=== PATIENT | male | born 1965 | race Hispanic/Latino ===

== ENCOUNTER 2022-04-24 19:03 | Inpatient (IN) | payer SELFPAY ==
[~2022-04-24] VITALS: Ht 167.6 cm; Wt 95.0 kg
[2022-04-24 20:05] VITALS: BP 132/75
[2022-04-24 20:16] VITALS: BP 141/66
[2022-04-24 20:31] VITALS: BP 142/88
[2022-04-24 20:43] LABS: BASO% 0.3 % (0-3); EOS% 0.1 % (0-8); HEMATOCRIT 46.4 % (39.0-50.0); HEMOGLOBIN 15.6 g/dl (14.0-18.0); IMMATURE GRANULOCYTES 0.2 % (0.0-5.0); LYMPH% 5.2 % (15-41); MEAN CELL VOLUME 91.2 fL CALC (80.0-100.0); MEAN CORPUSCULAR HGB 30.6 pG CALC (26.0-32.0); MEAN CORPUSCULAR HGB CONC 33.6 g/dL CAL (32.0-36.0); MONO% 3.7 % (2-13); NEUT# 12.37 thou/uL (1.82-7.42); NEUT% 90.5 % (42-76); RED BLOOD COUNT 5.09 mill/uL (4.70-6.10); RED CELL DISTRI WIDTH 14.2 % (11.5-15.5)
[2022-04-24 20:45] VITALS: BP 153/77
[2022-04-24 21:02] VITALS: BP 123/79
[2022-04-24 21:04] LABS: URINE BILIRUBIN - DIPSTICK SMALL (NEGATIVE); URINE BLOOD DIPSTICK NEGATIVE (NEGATIVE); URINE COLOR YELLOW; URINE GLUCOSE - DIPSTICK NEGATIVE (NEGATIVE); URINE KETONE NEGATIVE (NEGATIVE); URINE LEUK ESTERASE NEGATIVE (NEGATIVE); URINE NITRITE - DIPSTICK NEGATIVE (Negative); URINE PROTEIN - DIPSTICK NEGATIVE (NEG-TRACE)
[2022-04-24 21:09] LABS: ALBUMIN 4.8 g/dL (3.2-5.0); ALKALINE PHOSPHATASE 102 u/l (38-126); ANION GAP 12 (6-22 (CALC)); BILIRUBIN, TOTAL 1.5 mg/dL (0.2-1.3); BUN 12 mg/dL (9-20); BUN/CREATININE RATIO 18 (12-20 (CALC)); CARBON DIOXIDE 29 mmol/l (22-30); CHLORIDE 100 mmol/l (95-108); CREATININE 0.7 mg/dL (0.7-1.3); GFR FOR AFR.AMER. > 60 ML/MIN (>=60 (CALC)); GFR OTHER RACES > 60 ML/MIN (>=60 (CALC)); LIPASE 239 u/l (23-300); POTASSIUM 3.9 mmol/l (3.5-5.1); SGOT/AST 136 u/l (17-59); SODIUM 138 mmol/l (137-146); TOTAL PROTEIN 8.9 g/dL (6.3-8.2)
[2022-04-24 21:16] VITALS: BP 132/75
--- NOTE | 2022-04-24 23:51 | NUR ---
CALLED REPORT TO [facility] UPSTA[facility]. PT IN STABLE CONDITION. TRANSFERRING PT TO 274 VIA WHEELCHAIR.
--- NOTE | 2022-04-25 | NUR ---
PT ARRIVED TO [facility]2 VIA WHEELCHAIR ACCOMPANIED BY ER NURSE. PT AMBULATED TO STANDING SCALE FOR WEIGHT, STEADY GAIT. ORIENTED PT TO ROOM AND CALL LIGHT. DISCUSSED POC. PT ALERT AND ORIENTED X3, VINCENTIAN SPEAKING. INSTRUCTED PT TO PLACE BELONGINGS IN BELONGINS BAG AND CHANGE INTO A GOWN, UNDERGARMENTS OFF WELL. PT VERBALIZED UNDERSTANDING. VITALS OBTAINED. INCENTIVE SPIROMETER BROUGHT TO BEDSIDE, PROVIDED TEACHING ON ITS USE. PT VERBALIZED UNDERSTANDING, UNABLE TO ATTEMPT AT THIS TIME DUE TO PAIN. WILL MEDICATE ONCE MEDICATIONS PROFILED. ADMISSION ASSESSMENT COMPLETED, CALL LIGHT IN REACH,CONTINUE TO MONITOR.
[2022-04-25 00:05] VITALS: BP 137/77
[2022-04-25 06:09] VITALS: BP 132/55
--- NOTE | 2022-04-25 06:09 | NUR ---
PT RESTING IN BED, MEDICATED PER MAR, NO SIGNS OF DISTRESS NOTED, RESP EVEN AND UNLABORED. PT DENIES ANY NEEDS AT THIS TIME. CALL LIGHT IN REACH,CONTINUE TO MONITOR.
--- NOTE | 2022-04-25 10:33 | NUR ---
PATIENT RESTING MD INORMED PATIENT IN PERSON OF PROCEDURE THAT WILL HAPPEN TOMORROW FOR NOW HE CAN HAVE FULL LIQUID DIET UNTIL MIDNIGHT.
[2022-04-25 15:53] VITALS: BP 145/68
--- NOTE | 2022-04-25 17:21 | NUR ---
NO CHANGES. CONSENT REVIEWED WITH PATIENT AND SIGNED.
[2022-04-25 19:23] VITALS: BP 121/53
--- NOTE | 2022-04-25 20:15 | NUR ---
RECEIVED REPORT FROM DAY SHIFT NURSE. FAMILY AT BEDSIDE. PT ON BED HIGH FOWLERS; A&O X3. EVEN AND UNLABORED RESPIRATIONS; CLEAR LUNG SOUNDS UPON AUSCULTATION. IV SITE HEALTHY AND PATENT. PT DENIES PAIN AT THIS TIME. SAFETY PRECAUTIONS IN PLACE WITH CALL LIGHT IN REACH.
--- NOTE | 2022-04-25 20:34 | NUR ---
nurse park notified @1939 abt pts temp of 101.6.
--- NOTE | 2022-04-25 23:05 | NUR ---
PT HAD A TEMP OF 101.6; DR ROUSE NOTIFIED OF SAME; TYLENOL ORDER OBTAINED. RECHECKED TEMP IT WENT DOWN TO 100.[address] WITH CALL LIGHT IN REACH.
[2022-04-26] VITALS (12 sets, daily range): BP systolic 98–146; BP diastolic 52–74
--- NOTE | 2022-04-26 00:20 | NUR ---
PT C/O ABDOMINAL PAIN, LEVEL 6/10; ADMINISTERED PAIN MED PER EMAR. HANGING SCHEDULED ABX, IV HEALTHY AND PATENT. SAFETY PRECAUTIONS IN PLACE WITH CALL LIGHT IN REACH.
--- NOTE | 2022-04-26 04:45 | NUR ---
PT RESTING ON BED. VS COMPLETED, PT UP TO OBTAIN WEIGH. PT REMAINS NPO. IV SITE HEALTHY AND PATENT, INFUSING FLUIDS PER ORDER. SAFETY PRECAUTIONS IN PLACE WITH CALL LIGHT IN REACH.
[2022-04-26 05:26] LABS: BASO% 0.4 % (0-3); EOS% 4.6 % (0-8); IMMATURE GRANULOCYTES 0.2 % (0.0-5.0); LYMPH% 16.9 % (15-41); MEAN CELL VOLUME 92.5 fL CALC (80.0-100.0); MEAN CORPUSCULAR HGB 31.3 pG CALC (26.0-32.0); MEAN CORPUSCULAR HGB CONC 33.8 g/dL CAL (32.0-36.0); MONO% 9.1 % (2-13); NEUT# 5.75 thou/uL (1.82-7.42); NEUT% 68.8 % (42-76); RED BLOOD COUNT 4.28 mill/uL (4.70-6.10); RED CELL DISTRI WIDTH 14.9 % (11.5-15.5)
[2022-04-26 05:34] LABS: HEMATOCRIT 39.6 % (39.0-50.0); HEMOGLOBIN 13.4 g/dl (14.0-18.0)
[2022-04-26 05:44] LABS: ALKALINE PHOSPHATASE 120 u/l (38-126); ANION GAP 6 (6-22 (CALC)); BUN 8 mg/dL (9-20); BUN/CREATININE RATIO 11 (12-20 (CALC)); CARBON DIOXIDE 25 mmol/l (22-30); CHLORIDE 109 mmol/l (95-108); CREATININE 0.7 mg/dL (0.7-1.3); GFR FOR AFR.AMER. > 60 ML/MIN (>=60 (CALC)); GFR OTHER RACES > 60 ML/MIN (>=60 (CALC)); POTASSIUM 3.7 mmol/l (3.5-5.1); SGOT/AST 95 u/l (17-59); SODIUM 137 mmol/l (137-146)
[2022-04-26 05:50] LABS: ALBUMIN 3.2 g/dL (3.2-5.0); BILIRUBIN, TOTAL 4.1 mg/dL (0.2-1.3); TOTAL PROTEIN 6.3 g/dL (6.3-8.2)
--- NOTE | 2022-04-26 10:50 | NUR ---
PATIENT LEFT FOR PROCEDURE NPO AFTER MIDNIGHT. PATIENT AGREEABLE TO PRODEDURE.
[2022-04-26 17:58] LABS: HEMATOCRIT 41.6 % (39.0-50.0); HEMOGLOBIN 13.8 g/dl (14.0-18.0)
--- NOTE | 2022-04-26 18:19 | NUR ---
PATIENT HAD LAPCHOLE WITH ABNER DRAIN PLACEMENT. PATIENT REPORTS PAIN 8/10 PRN MED GIVEN PAIN DOWN TO 3/10. IV FLUIDS RUNNING WITH ABX. PATIENT ENCOURAGE TO EAT AND AMBULATE. SURGERY SITES REMAIN IN GOOD CONDITION. ABNER DRAIN OUTPUT DURING DAY SHIFT 80ML BLOODY RED. WILL CONTINUE TO MONITOR.
--- NOTE | 2022-04-26 19:16 | NUR ---
pt had a temp of 100.2 @1906. Nurse park notified @1909.
--- NOTE | 2022-04-26 19:30 | NUR ---
RECEIVED REPORT FROM HOLLY JONES. PT SITTING ON BED LOW FOWLERS: A&O X3. EVEN AND UNLABORED RESPIRATIONS. IV SITE HEALTHY AND PATENT. ACTIVE BOWEL SOUNDS X4 QUADRANTS. ABDOMINAL GLUED INCISIONS NOTED 3X, AND ABNER DRAIN. EMPTIED ABNER DRAIN CONTENTS; 50 MLS OF BLOODY DRAINAGE. SCD'S APPLIED. PT DENIES PAIN AT THIS TIME. SAFETY PRECAUTIONS IN PLACE WITH CALL LIGHT IN REACH.
--- NOTE | 2022-04-27 00:19 | NUR ---
PT RESTING ON BED; VS COMPLETED, TEMP 100.9; TYLENOL ADMINISTERED. PT C/O ABDOMINAL PAIN, LEVEL 9/10; ADMINISTERED PAIN MED PER EMAR. EMPTIED ABNER DRAIN CONTENTS, 30CC OB BLOODY DRAINAGE. SAFETY PRECAUTIONS IN PLACE WITH CALL LIGHT IN REACH.
[2022-04-27 01:40] VITALS: BP 100/60
--- NOTE | 2022-04-27 04:32 | NUR ---
PT SITTING ON BED, LOW FOWLERS POSITION. CLEAN GOWN PROVIDED. PT ASSISSTED WITH THE USE OF URINAL; 350 MLS OF DARK TYLER URINE. EMPTIED ABNER CONTENTS; 10 MLS OF BLOODY DRAINAGE. SCD'S IN PLACE. NO DISTRESS NOTED. PT DENIES PAIN AT THIS TIME. SAFETY PRECAUTIONS IN PLACE WITH CALL LIGHT IN REACH.
[2022-04-27 04:46] VITALS: BP 113/69
[2022-04-27 06:08] LABS: BASO% 0.5 % (0-3); EOS% 1.5 % (0-8); HEMATOCRIT 36.4 % (39.0-50.0); HEMOGLOBIN 11.9 g/dl (14.0-18.0); IMMATURE GRANULOCYTES 0.2 % (0.0-5.0); LYMPH% 18.7 % (15-41); MEAN CELL VOLUME 94.1 fL CALC (80.0-100.0); MEAN CORPUSCULAR HGB 30.7 pG CALC (26.0-32.0); MEAN CORPUSCULAR HGB CONC 32.7 g/dL CAL (32.0-36.0); NEUT# 5.85 thou/uL (1.82-7.42); NEUT% 71.1 % (42-76); RED BLOOD COUNT 3.87 mill/uL (4.70-6.10); RED CELL DISTRI WIDTH 15.1 % (11.5-15.5)
[2022-04-27 06:21] LABS: ALBUMIN 3.2 g/dL (3.2-5.0); ALKALINE PHOSPHATASE 104 u/l (38-126); ANION GAP 6 (6-22 (CALC)); BUN 9 mg/dL (9-20); BUN/CREATININE RATIO 12 (12-20 (CALC)); CARBON DIOXIDE 27 mmol/l (22-30); CHLORIDE 107 mmol/l (95-108); CREATININE 0.7 mg/dL (0.7-1.3); GFR FOR AFR.AMER. > 60 ML/MIN (>=60 (CALC)); GFR OTHER RACES > 60 ML/MIN (>=60 (CALC)); POTASSIUM 3.8 mmol/l (3.5-5.1); SGOT/AST 65 u/l (17-59); SODIUM 136 mmol/l (137-146); TOTAL PROTEIN 6.2 g/dL (6.3-8.2)
[2022-04-27 06:23] VITALS: BP 113/69
[2022-04-27 06:24] LABS: BILIRUBIN, TOTAL 1.7 mg/dL (0.2-1.3)
--- NOTE | 2022-04-27 08:45 | NUR ---
RECIEVED REPORT FROM NIGHTSHIFT NURSE. PT IN BATHROOM AT TIME TRYING TO HAVE ABOWEL MOVEMENT. PT WAS UNSUCCESSFUL BUT ABLE TO PASS GAS. ACTIVE BOWEL SOUNDS PRESENT. INCISIONS AND DRAIN ASSESSED ON PT. BOTH APPEAR HEALTHY, DRAIN HAD A LIQUID, BRIGHT READ OUTPUT. DOCUMENTED OUTPUT. WITNESSED PT AMBULATE FROM BATHROOM BACK INTO BED WITH STEADY GAIT. SCD'S APPLIED ON PTS CALFS. IV SITE APPEARS HEALTHY AND INTACT, FLUIDS RUNNING PER EMAR. CALL LIGHT WIHTIN REACH AND SAFETY PRECAUTIONS IN PLACE.
--- NOTE | 2022-04-27 12:13 | NUR ---
PT LAYING IN BED, DENIES ANY PAIN BUT MINOR DISCOMFORT IN ABD. ABNER DRAIN EMPTIED AND OUTPUT MEASURED. PT ALSO USED URINAL, URINE DARK YELLOW AND CLEAR. PT REQUESTED HAVING SCD'D TAKEN OFF FOR A LITTLE. LUNCH TRAY BROUGHT IN BUT PT STATED NOT FEELING THAT HUNGRY. CALL LIGHT WITHIN REACH AND SAFETY PRECAUTIONS IN [place]. -
[2022-04-27 14:21] LABS: HEMATOCRIT 33.3 % (39.0-50.0); HEMOGLOBIN 11.1 g/dl (14.0-18.0)
[2022-04-27 16:18] VITALS: BP 146/100
--- NOTE | 2022-04-27 16:53 | NUR ---
PT IS JACQUE BERRY FOWLERS IN BED, DENIES ANY PAIN AT THIS TIME. ABNER DRAIN EMPTIED AND DOCUMENTED OUTPUT. DRESSING INTACT AND DRY AROUND DRAIN. CALL LIGHT WITHIN REACH AND SAFETY PRECAUTIONS I NPLACE.
[2022-04-27 18:58] VITALS: BP 155/78
--- NOTE | 2022-04-27 20:00 | NUR ---
RECEIVED REPORT FROM RADHA LEWIS. PT RESTING ON BED LOW FOWLERS POSITION; A&O X3. EVEN AND UNLABORED RESPIRATIONS; CLEAR LUNG SOUNDS UPON AUSCULTATION. ABDOMINAL INCISIONS NOTED 3X GLUED; ABNER DRAIN TO RT SIDE. EMPTIED ABNER CONTENTS, 5 MLS OF SEROSANGUINEOUS DRAINAGE. IV SITE HEALTHY AND PATENT. SCD'S IN PLACE. SAFETY PRECAUTIONS IN PLACE WITH CALL LIGHT IN REACH.
--- NOTE | 2022-04-27 22:10 | NUR ---
PT C/O ABDOMINAL PAIN LEVEL, 9/10; ADMINISTERED PAIN MED PER EMAR. SAFETY PRECAUTIONS IN PLACE WITH CALL LIGHT IN REACH.
[2022-04-28 00:10] VITALS: BP 107/71
--- NOTE | 2022-04-28 00:49 | NUR ---
PT C/O ABDOMINAL PAIN LEVEL, 4/10; ADMINISTERED PAIN MED PER EMAR. EMPTIED CONTENTS OF ANBER DRAIN; 3 MLS OF SEROSANGUINEOUS DRAINAGE. NO MORE NEEDS AT THIS TIME. SAFETY PRECAUTIONS IN PLACE WITH CALL LIGHT IN REACH.
[2022-04-28 05:13] VITALS: BP 145/83
--- NOTE | 2022-04-28 05:15 | NUR ---
PT RESTING ON BED, WAKING UP UPON DIRECTOR [employer] ENTERS THE ROOM. NO DISTRESS NOTED. PT DENIES PAIN AT THIS TIME. VS COMPLETED. IV SITE HEALTHY AND PATENT, INFUSING FLUIDS PER ORDER. EMPTIED ABNER DRAIN; 10 MLS OF SEROSANGUINEOUS DRAIN. EMPTIED CONTENTS OF URINAL; 350 MLS OF CLEAR, YELLOW URINE. SAFETY PRECAUTIONS IN PLACE WITH CALL LIGHT IN REACH.
[2022-04-28 06:11] LABS: BASO% 0.6 % (0-3); EOS% 4.2 % (0-8); HEMATOCRIT 32.5 % (39.0-50.0); HEMOGLOBIN 11.1 g/dl (14.0-18.0); IMMATURE GRANULOCYTES 0.1 % (0.0-5.0); MEAN CELL VOLUME 92.9 fL CALC (80.0-100.0); MEAN CORPUSCULAR HGB 31.7 pG CALC (26.0-32.0); MEAN CORPUSCULAR HGB CONC 34.2 g/dL CAL (32.0-36.0); MONO% 9.7 % (2-13); NEUT# 4.36 thou/uL (1.82-7.42); NEUT% 60.4 % (42-76); RED BLOOD COUNT 3.5 mill/uL (4.70-6.10); RED CELL DISTRI WIDTH 14.6 % (11.5-15.5)
[2022-04-28 06:38] LABS: ALBUMIN 3.1 g/dL (3.2-5.0); ALKALINE PHOSPHATASE 89 u/l (38-126); ANION GAP 9 (6-22 (CALC)); BILIRUBIN, TOTAL 1.1 mg/dL (0.2-1.3); BUN 5 mg/dL (9-20); BUN/CREATININE RATIO 8 (12-20 (CALC)); CARBON DIOXIDE 24 mmol/l (22-30); CHLORIDE 107 mmol/l (95-108); CREATININE 0.7 mg/dL (0.7-1.3); GFR FOR AFR.AMER. > 60 ML/MIN (>=60 (CALC)); GFR OTHER RACES > 60 ML/MIN (>=60 (CALC)); POTASSIUM 3.8 mmol/l (3.5-5.1); SGOT/AST 36 u/l (17-59); SODIUM 136 mmol/l (137-146); TOTAL PROTEIN 6.2 g/dL (6.3-8.2)
[2022-04-28 07:00] VITALS: BP 132/68
--- NOTE | 2022-04-28 12:04 | NUR ---
PATIENT REPORTS FEELING BETTER. ABNER DRAIN FROM 7AM TILL 1200 5CC OUTPUT. PATIENT IS BETTER CONTROLLED. WILL CONTINUE TO MONITOR.
[2022-04-28] MEDS ORDERED: PERCOCET 5/321 COMBO PO (12:14)
--- NOTE | 2022-04-28 15:00 | NUR ---
PATIENT DISCHARGED STABLE. ABNER DRAIN REMOVED PRIOR TO DISCHARGE AT LEAST AN HOUR BEFORE. NOT COMPLICATIONS. PIV REMOVED. INSTRUCTED PATIENT TO FOLLOW UP WITHIN ONE WEEK WITH MD. PATIENT LEFT UNIT IN WHEELCHAIR.
== END 2022-04-28 15:00 | disposition home or self-care (01) | DRG 419 ==
LOC: ED 19:03 → MS2 23:14
PROVIDERS: Family Medicine; ADMIT Surgery; ATTEND Surgery
PROC: 0FT44ZZ Resection of Gallbladder, Percutaneous Endoscopic Approach (ICD-10-PCS; principal; 2022-04-26)
PROC: BF001ZZ Plain Radiography of Bile Ducts using Low Osmolar Contrast (ICD-10-PCS; 2022-04-26)
DX: K80.00 Calculus of gallbladder with acute cholecystitis without obstruction (principal); R50.82 Postprocedural fever; Z20.822 Contact with and (suspected) exposure to COVID-19
CPT/HCPCS: J0131; Q9967; S0164